=== PATIENT | male | born 1985 | race Two or more races ===

== ENCOUNTER → 2020-12-09 06:34 | Outpatient (CLI) | payer OTHER | END | disposition home or self-care (01) | LOC: PPH VACUNA 06:34 | DX: Z23 Encounter for immunization (principal) ==

== ENCOUNTER 2021-09-15 09:00 | Outpatient (CLI) | payer OTHER | END 2021-09-15 09:30 | disposition home or self-care (01) | LOC: PPH VACUNA 09:00 | PROVIDERS: ATTEND Emergency Medicine Pediatric Emergency Medicine | DX: Z23 Encounter for immunization (principal) ==